=== PATIENT | male | born 1965 | race Caucasian/White ===

== ENCOUNTER 2024-07-02 04:41 | Emergency (ER) | payer OTHER ==
[2024-07-02] MEDS ORDERED: LORAZEPAM 1 MG TABLET ONE (05:32)
--- NOTE | 2024-07-02 05:59 | ER ---
Nurse's Notes [facility] Name: Ruddy Her Age: 59 yrs Sex: Male : 1965 Arrival Date: 07/02/2024 Time: 04:41 Bed 5 Private MD: Diagnosis: Anxiety disorder, unspecified;Insomnia due to medical condition Presentation: 07/02 04:44 Chief complaint: Patient states: ANXIETY, UNABLE TO SLEEP, AND ELEVATED GLUCOSE LEVEL. ha1 04:44 Coronavirus screen: Vaccine status: Patient reports being unvaccinated. Ebola Screen: ha1 No symptoms or risks identified at this time. Initial Sepsis Screen: Does the patient meet any 2 criteria? No. Patient's initial sepsis screen is negative. Does the patient have a suspected source of infection? No. Patient's initial sepsis screen is negative. Risk Assessment: Do you want to hurt yourself or someone else? Patient reports no desire to harm self or others. Onset of symptoms was July 02, 2024. 04:44 Method Of Arrival: Ambulatory ha1 04:44 Acuity: YASMIN 4 ha1 Triage Assessment: 04:44 General: Appears uncomfortable, Behavior is anxious. Pain: Complains of pain in CHRONIC ha1 PAIN BACK Pain currently is 3 out of 10 on a pain scale. Neuro: Level of Consciousness is awake, alert, obeys commands, Oriented to person, place, time, situation. Cardiovascular: Capillary refill < 3 seconds Patient's skin is warm and dry. Respiratory: Airway is patent Respiratory effort is even, unlabored, Respiratory pattern is regular, symmetrical. GI: Abdomen is round non-distended, obese. Derm: Skin is pink, warm \T\ dry. Musculoskeletal: Circulation, motion, and sensation intact. Range of motion: intact in all extremities. Historical: - Allergies: 05:41 Dilaudid; mt4 - Immunization history:: Adult Immunizations up to date. - Social history:: The patient is unemployed, Smoking status: Patient denies any tobacco usage or history of. - Infectious Disease History:: Denies. - Family history:: not pertinent. Screenin:41 [facility] ED Fall Risk Assessment (Adult) History of falling in the last 3 months, mt4 including since admission Yes- single mechanical fall (1 pt) Confusion or Disorientation No (0 pts) Intoxicated or Sedated No (0 pts) Impaired Gait No (0 pts) Mobility Assist Device Used Yes (1 pt) Altered Elimination No (0 pt) Score/Fall Risk Level 3 or more points = High Risk. Abuse screen: Denies injuries from another. Nutritional screening: No deficits noted. Tuberculosis screening: No symptoms or risk factors identified. Exposure risk/Travel Screening: None identified. Assessment: 05:37 Reassessment: Patient is alert/active/playful, equal unlabored respirations, skin mt4 warm/dry/pink. General: Appears comfortable, obese, Behavior is anxious. Pain: Denies pain. Neuro:. Neuro: Level of Consciousness is awake, alert, obeys commands, Oriented to person, place, time, situation, Soaping Machine Back Tender are equal bilaterally Moves all extremities. Gait is steady, Speech is normal, Facial symmetry appears normal. Cardiovascular: Capillary refill < 3 seconds. Respiratory: Airway is patent Respiratory effort is even, unlabored, Respiratory pattern is regular. GI: No signs and/or symptoms were reported involving the gastrointestinal system. GI: No signs and/or symptoms were reported involving the gastrointestinal system. : No signs and/or symptoms were reported regarding the genitourinary system. Musculoskeletal: Range of motion: intact in all extremities. Vital Signs: 05:41 BP 134 / 60; Pulse 57; Resp 20; Temp 98.8(O); Pulse Ox 98% on R/A; Pain 0/10; mt4 06:00 BP 127 / 69; Pulse 60; Resp 20; Temp 98.6; Pulse Ox 97% ; jj7 05:41 Pain Scale: Adult mt4 Fermin Coma Score: 05:30 Eye Response: spontaneous(4). Motor Response: obeys commands(6). Verbal Response: sp4 oriented(5). Total: 15. 05:41 Eye Response: spontaneous(4). Motor Response: obeys commands(6). Verbal Response: mt4 oriented(5). Total: 15. ED Course: 04:44 Patient arrived in ED. jj6 04:45 Dhiraj Jean MD is Attending Physician. sp4 05:36 Sandra Siddiqi, RN is Primary Nurse. mt4 05:41 Patient has correct armband on for positive identification. Fall risk band placed. Bed mt4 in low position. Call light in reach. Side rails up X 1. Provided Education on: medication . Client placed on continuous cardiac and pulse oximetry monitoring. NIBP monitoring applied. Pulse ox on. Door closed. Noise minimized. Lights dimmed. Warm blanket given. Diet tray ordered. Verbal reassurance given. Assisted with urinal. 05:41 No provider procedures requiring assistance completed. Patient did not have IV access mt4 during this emergency room visit. 05:47 Triage completed. ha1 Administered Medications: 05:36 Drug: LORazepam PO 1 mg PO once Route: PO; mt4 06:03 Follow up: Response: No adverse reaction jj7 Medication: 05:41 VIS not applicable for this client. mt4 Outcome: 05:58 Discharge ordered by . vicky 06:00 Discharged to home ambulatory, rito 06:00 Condition: good 06:00 Discharge instructions given to patient, Instructed on discharge instructions, follow up and referral plans. medication usage, Demonstrated understanding of instructions, follow-up care, medications, Prescriptions given X 1, 06:23 Patient left the ED. jj7 Signatures: Madalyn Fried jj6 Reina Morgan RN RN ha1 Navid Wan RN RN jj7 Dhiraj Jean MD MD sp4 Sandra Siddiqi RN RN mt4 Corrections: (The following items were deleted from the chart) 05:42 05:41 Home Meds: pain pump; mt4 mt4
--- NOTE | 2024-07-02 05:59 | EDPHYS ---
Physician Documentation [facility] Name: Ruddy Her Age: 59 yrs Sex: Male : 1965 Arrival Date: 07/02/2024 Time: 04:41 Bed 5 Private MD: ED Physician Dhiraj Jean HPI: 07/02 04:45 This 59 yrs old Male presents to ER via Unassigned with complaints of Anxiety.sp4 05:29 PMH - Allergies: Dilaudid PMHx: Borderline Diabetes; Hypertensive disorder; sp4 Hypothyroidism; Polycythemia Vera; Diabetes mellitus; Chronic back pain; PSHx: Fused Lumbar; . 05:30 59-year-old male presents to the emergency room with complaint of insomnia and anxiety. sp4 Patient states he ran out of his lorazepam day before yesterday. Patient takes 1 mg lorazepam as needed for anxiety. Patient requests medicine for anxiety. Also request blood sugar checked. Historical: - Allergies: 05:41 Dilaudid; mt4 - Immunization history:: Adult Immunizations up to date. - Social history:: The patient is unemployed, Smoking status: Patient denies any tobacco usage or history of. - Infectious Disease History:: Denies. - Family history:: not pertinent. ROS: 05:30 Constitutional: Negative for fever, chills, and weight loss, positive for anxiety, sp4 positive for insomnia 05:30 All other systems are negative, Exam: 05:30 Constitutional: This is a well developed, well nourished patient who is awake, alert, sp4 and in no acute distress. Ambulatory with a cane Head/Face: Normocephalic, atraumatic. Eyes: Pupils equal round and reactive to light, extra-ocular motions intact. Lids and lashes normal. Conjunctiva and sclera are not injected. Cornea within normal limits. Periorbital areas with no swelling, redness, or edema. ENT: Nares patent. No nasal discharge, no septal abnormalities noted. Tympanic membranes are normal and external auditory canals are clear. Oropharynx with no redness, swelling, or masses, exudates, or evidence of obstruction, uvula midline. Mucous membranes moist. Neck: Trachea midline, no thyromegaly or masses palpated, and no cervical lymphadenopathy. Supple, full range of motion without nuchal rigidity, or vertebral point tenderness. Chest/axilla: Normal chest wall appearance and motion. Nontender with no deformity. No lesions are appreciated. Cardiovascular: Regular rate and rhythm with a normal S1 and S2. No gallops, murmurs, or rubs. Normal PMI, no JVD. No pulse deficits. Respiratory: Lungs have equal breath sounds bilaterally, clear to auscultation and percussion. No rales, rhonchi or wheezes noted. No increased work of breathing, no retractions or nasal flaring. Abdomen/GI: Soft, with normal bowel sounds. No distension or tympany. No guarding or rebound. No evidence of tenderness throughout. Back: No spinal tenderness. No costovertebral tenderness. Skin: Warm, dry with normal turgor. Normal color with no rashes, no lesions, and no evidence of cellulitis. MS/ Extremity: Pulses equal, no cyanosis. Neurovascular intact. Full, normal range of motion. Neuro: Awake and alert, GCS 15, oriented to person, place, time, and situation. Cranial nerves II-XII grossly intact. Motor strength 5/5 in all extremities. Sensory grossly intact. Psych: Awake, alert, with orientation to person, place and time. Behavior, mood, and affect are within normal limits Vital Signs: 05:41 BP 134 / 60; Pulse 57; Resp 20; Temp 98.8(O); Pulse Ox 98% on R/A; Pain 0/10; mt4 06:00 BP 127 / 69; Pulse 60; Resp 20; Temp 98.6; Pulse Ox 97% ; jj7 05:41 Pain Scale: Adult mt4 Fermin Coma Score: 05:30 Eye Response: spontaneous(4). Motor Response: obeys commands(6). Verbal Response: sp4 oriented(5). Total: 15. 05:41 Eye Response: spontaneous(4). Motor Response: obeys commands(6). Verbal Response: mt4 oriented(5). Total: 15. MDM: 04:58 Patient medically screened. sp4 06:00 Differential diagnosis: drug withdrawal. depression, psychosis secondary to sp4 non-compliance, anxiety and insomnia. Data reviewed: vital signs, nurses notes, lab test result(s), finger stick glucose. ED course: Blood sugar 283 , stable for discharge home . 06:01 ED course: Will provide as needed Ativan prescription 10 tablets total. Advised sp4 follow-up with pain management physician. . 07/02 05:41 Order name: Glucose, Ancillary Testing; Complete Time: 06:05 EDMS 07/02 04:58 Order name: Accucheck Blood Glucose; Complete Time: 06:03 sp4 Administered Medications: 05:36 Drug: LORazepam PO 1 mg PO once Route: PO; mt4 06:03 Follow up: Response: No adverse reaction jj7 Disposition Summary: 07/02/24 05:58 Discharge Ordered Notes: Location: Home sp4 Problem: new sp4 Symptoms: have improved sp4 Condition: Stable sp4 Diagnosis - Anxiety disorder, unspecified sp4 - Insomnia due to medical condition sp4 Followup: sp4 - With: Private Physician - When: 7 - 10 days - Reason: Recheck today's complaints Discharge Instructions: - Discharge Summary Sheet sp4 - Managing Anxiety, Adult sp4 Forms: - Patient Portal Instructions sp4 Prescriptions: - Ativan 1 mg Oral tablet - take 1 tablet ORAL route once daily As needed PRN anxiety; 10 tablet; Refills: sp4 0, Product Selection Permitted Signatures: Dhiraj Jean MD MD sp4 Sandra Siddiqi RN RN mt4 Navid Wan RN jj7 Corrections: (The following items were deleted from the chart) 05:42 05:41 Home Meds: pain pump; mt4 mt4
[2024-07-02 06:30] VITALS: BP 127/69; TEMP 98.6; O2SAT 97
== END 2024-07-02 06:23 | disposition home or self-care (01) ==
LOC: ER 04:41
DX: F41.9 Anxiety disorder, unspecified (principal); G47.01 Insomnia due to medical condition
CPT/HCPCS: 82947; 99284

== ENCOUNTER 2024-07-04 14:39 | Emergency (ER) | payer OTHER ==
[2024-07-04 15:59] LABS: Absolute Eosinophils 0.1 K/uL (0-0.5); Absolute Lymphocytes (CBC) 1.4 K/uL (0.7-4.9); Absolute Monocytes 0.4 K/uL (0.1-1.3); Basophils % 0.6 % (0-1.3); Eosinophils % 3.7 % (0-4.4); Hematocrit 39.1 % (39.6-49.0); Hemoglobin 13.2 g/dL (13.6-17.9); Lymphocytes % 35.8 % (15.3-44.8); MCH 30.1 pg (27.0-35.0); MCHC 33.8 g/dL (32.0-36.0); MCV 88.9 fL (80-100); MPV 7.3 fL (7.6-11.3); Monocytes % 9.4 % (3.3-12.3); Neutrophils % 50.5 % (41.7-73.7); Platelets 99 thou/uL (152-406); Red Cell Distribution Width 14.6 % (12.1-15.2)
[2024-07-04 16:16] LABS: Albumin 3.6 g/dL (3.4-5.0); Anion Gap 9.6 mEq/L (5.0-15.0); Bilirubin Total 0.4 mg/dL (0.2-1.0); Globulin 3.6 g/dL (2.3-3.5); Potassium 3.6 mEq/L (3.5-5.1); Protein, Total 7.2 g/dL (6.4-8.2)
--- NOTE | 2024-07-04 16:21 | RAD REPORT ---
EXAMINATION: CT ABDOMEN AND PELVIS WITHOUT CONTRAST CLINICAL INDICATION: Abdominal pain TECHNIQUE: CT abdomen and pelvis was performed, as per department protocol. IV contrast and oral was not administered.Axial, sagittal and coronal reconstructions were obtained. One or more of the following dose reduction techniques were used: Automated exposure control, adjustment of the mA and/o r kV according to the patient size, and/or iterative reconstruction. Unless otherwise specified, incidental findings do not require dedicated imaging follow-up. [id number]. COMPARISON: 2022 FINDINGS: The lack of intravenous and contrast limits the sensitivity of this exam for evaluation of solid visc eral organs, vascular structures, and bowel. Hepatomegaly with fatty infiltration. Cirrhotic liver. Spleen centimeters. The pancreas, adrenals and kidneys grossly normal Post surgical changes involve the lumbar spine. Ostial lysis involving 2 vertebral again demonstrated . Marked spondylosis L2-3 Pain pump present. No evidence of diverticulitis IMPRESSION: Hepatomegaly with fatty infiltration.. Cirrhosis with splenomegaly 8 mm low-density lesion within the liver is nonspecific. Nonemergent MRI may be helpful for further e valuation.
--- NOTE | 2024-07-04 16:49 | EDPHYS ---
Physician Documentation [facility] Name: Ruddy Her Age: 59 yrs Sex: Male : 1965 Arrival Date: 07/04/2024 Time: 14:39 Bed 19 Private MD: ED Physician Phillip Naranjo HPI: 07/04 15:44 This 59 yrs old Male presents to ER via Ambulatory with complaints of ec2 Abdominal Pain. 15:44 Patient arrives today for evaluation of left-sided abdominal pain. Ongoing for 2 days. ec2 No nausea. No trauma. Reports that he recently had his hepatitis vaccines and was concerned this was causing a reaction. No urinary complaints.. Historical: - Allergies: 14:45 Dilaudid; ll1 - PMHx: 14:45 Borderline Diabetes; chronic back pain; diabetes mellitus; Hypertensive disorder; ll1 Hypothyroidism; polycythemia vera; - PSHx: 14:45 Fused Lumbar; ll1 - Immunization history:: Adult Immunizations up to date. - Infectious Disease History:: Denies. - Social history:: Smoking status: Reported history of juuling and/or vaping. ROS: 15:44 Constitutional: as per hpi ec2 Exam: 15:44 Constitutional: GEN: NAD Head: atraumatic Eyes: EOMI Ears: External ears are ec2 normal. CV: regular rate LUNGS: no respiratory distress ABD: Slightly distended abdomen who is generally tender SKIN: no evidence of rashes MSK: no evidence of trauma Vital Signs: 14:45 BP 150 / 93; Pulse 71; Resp 18; Temp 98; Pulse Ox 98% ; Weight 122.47 kg; Height 6 ft. ll1 4 in. ; Pain 6/10; 16:00 BP 146 / 79; Pulse 62; Resp 17; Pulse Ox 97% ; me1 16:56 BP 143 / 87; Pulse 61; Resp 16; Temp 98.1; Pulse Ox 95% ; me1 14:45 Body Mass Index 32.87 (122.47 kg, 193.04 cm) ll1 14:45 Pain Scale: Adult ll1 MDM: 15:44 Data reviewed: vital signs. ED course: Patient arrives today for evaluation of ec2 abdominal pain. Examination remarkable for abdominal findings as above. Will obtain lab work and CT imaging. Differential includes constipation, pancreatitis, small bowel obstruction. 16:49 ED course: CBC, metabolic profile and lipase are nonactionable, CT imaging shows ec2 cirrhosis along with splenomegaly, patient can follow-up outpatient for his liver disease. Will discharge home. Return precautions given. . 16:49 Patient medically screened. ec2 07/04 15:40 Order name: CBC with Diff ec2 07/04 15:40 Order name: CMP; Complete Time: 16:48 ec2 07/04 15:40 Order name: Lipase; Complete Time: 16:48 ec2 07/04 15:40 Order name: CT Abd/Pelvis - Without Contrast; Complete Time: 16:48 ec2 07/04 15:40 Order name: IV Saline Lock; Complete Time: 15:55 ec2 07/04 15:40 Order name: Labs collected and sent; Complete Time: 15:55 ec2 Administered Medications: 17:03 Drug: hydrOXYzine PO 50 mg PO once Route: PO; me1 17:04 Follow up: Response: No adverse reaction me1 Disposition Summary: 07/04/24 16:49 Discharge Ordered Notes: Location: Home ec2 Condition: Stable ec2 Diagnosis - Abdominal distension (gaseous) ec2 Followup: ec2 - With: Private Physician - When: - Reason: Re-evaluation by your physician Discharge Instructions: - Discharge Summary Sheet ec2 - Abdominal Pain, Adult ec2 Forms: - Medication Reconciliation Form ec2 - Antibiotic Education ec2 - Prescription Opioid Use ec2 - Patient Portal Instructions ec2 - Leadership Thank You Letter ec2 Signatures: Dispatcher [employer] Vinny Mariano RN RN 1 Trinh Green RN RN me1 Phillip Naranjo MD MD ec2 Corrections: (The following items were deleted from the chart) 15:41 15:41 Abdomen Pelvis Wo Con+CT.RAD.BRZ ordered. EDMS EDMS
--- NOTE | 2024-07-04 16:49 | ER ---
Nurse's Notes [facility] Name: Ruddy Her Age: 59 yrs Sex: Male : 1965 Arrival Date: 07/04/2024 Time: 14:39 Bed 19 Private MD: Diagnosis: Abdominal distension (gaseous) Presentation: 07/04 14:45 Chief complaint: Patient states: Abdominal pain continues since his visit last night. ll1 Gout flare up B hand, and B 1st toe digits. Coronavirus screen: Client denies travel out of the [place] in the last 14 days. At this time, the client does not indicate any symptoms associated with coronavirus-19. Ebola Screen: Patient denies travel to an Ebola-affected area in the 21 days before illness onset. Initial Sepsis Screen: Does the patient meet any 2 criteria? No. Patient's initial sepsis screen is negative. Does the patient have a suspected source of infection? No. Patient's initial sepsis screen is negative. Risk Assessment: Do you want to hurt yourself or someone else? Patient reports no desire to harm self or others. Onset of symptoms was July 01, 2024. 14:45 Method Of Arrival: Ambulatory ll1 14:45 Acuity: YASMIN 3 ll1 Triage Assessment: 14:45 General: Appears uncomfortable, Behavior is calm, cooperative, appropriate for age. ll1 Pain: Complains of pain in abdomen. GI: Reports upper abdominal pain, bloating. Musculoskeletal: Reports pain in right hand, left hand, right foot and left foot. Historical: - Allergies: 14:45 Dilaudid; ll1 - PMHx: 14:45 Borderline Diabetes; chronic back pain; diabetes mellitus; Hypertensive disorder; ll1 Hypothyroidism; polycythemia vera; - PSHx: 14:45 Fused Lumbar; ll1 - Immunization history:: Adult Immunizations up to date. - Infectious Disease History:: Denies. - Social history:: Smoking status: Reported history of juuling and/or vaping. Screenin:00 [facility] ED Fall Risk Assessment (Adult) History of falling in the last 3 months, me1 including since admission No falls in past 3 months (0 pts) Confusion or Disorientation No (0 pts) Intoxicated or Sedated No (0 pts) Impaired Gait Yes (1 pt) Mobility Assist Device Used Yes (1 pt) Altered Elimination No (0 pt) Score/Fall Risk Level 0 - 2 = Low Risk Maintained a safe environment, Provided non-skid footwear, Hourly rounding (assess needs \T\ fall precautionary measures) done. Abuse screen: Denies threats or abuse. Nutritional screening: No deficits noted. Tuberculosis screening: No symptoms or risk factors identified. Assessment: 15:00 General: Appears uncomfortable, well groomed, well developed, well nourished, Behavior me1 is calm, cooperative, appropriate for age, Reports Abdominal pain continues since his visit last night. Gout flare up B hand, and B 1st toe digits. Pain: Complains of pain in left foot and right foot and left hand and right hand and abdomen Pain does not radiate. Pain currently is 6 out of 10 on a pain scale. Quality of pain is described as aching, Pain began 1 day ago. Is continuous. Neuro: Level of Consciousness is awake, alert, obeys commands, Oriented to person, place, time, situation, Appropriate for age. Cardiovascular: Patient's skin is warm and dry. Respiratory: Airway is patent Respiratory effort is even, unlabored, Respiratory pattern is regular, symmetrical. GI: Bowel sounds present X 4 quads. Abd is soft X 4 quads Reports upper abdominal pain. : No signs and/or symptoms were reported regarding the genitourinary system. EENT: No signs and/or symptoms were reported regarding the EENT system. Derm: Skin is intact, is healthy with good turgor, Skin is pink, warm \T\ dry. Musculoskeletal: Reports pain in left foot and right foot and left hand and right hand. Vital Signs: 14:45 BP 150 / 93; Pulse 71; Resp 18; Temp 98; Pulse Ox 98% ; Weight 122.47 kg; Height 6 ft. ll1 4 in. ; Pain 6/10; 16:00 BP 146 / 79; Pulse 62; Resp 17; Pulse Ox 97% ; me1 16:56 BP 143 / 87; Pulse 61; Resp 16; Temp 98.1; Pulse Ox 95% ; me1 14:45 Body Mass Index 32.87 (122.47 kg, 193.04 cm) ll1 14:45 Pain Scale: Adult ll1 ED Course: 14:41 Patient arrived in ED. mg5 14:43 Phillip Naranjo MD is Attending Physician. ec2 14:45 Arm band placed on. ll1 14:47 Triage completed. ll1 15:00 Patient has correct armband on for positive identification. Bed in low position. Call [facility] light in reach. Side rails up X 1. Provided Education on: POC. Verbalized understanding. . Client placed on continuous cardiac and pulse oximetry monitoring. NIBP monitoring applied. Pulse ox on. NIBP on. 15:00 No provider procedures requiring assistance completed. hi1 15:01 Trinh Green, RN is Primary Nurse. hi1 15:55 CBC with Diff Sent. me1 15:55 CMP Sent. hi1 15:55 Lipase Sent. hi1 15:55 Initial lab(s) drawn, by hi, sent to lab. Inserted saline lock: 22 gauge in right hi1 antecubital area, using aseptic technique. 16:10 CT Abd/Pelvis - Without Contrast In Process Unspecified. EDMS 17:04 IV discontinued, intact, bleeding controlled, No redness/swelling at site. Pressure hi1 dressing applied. Administered Medications: 17:03 Drug: hydrOXYzine PO 50 mg PO once Route: PO; hi1 17:04 Follow up: Response: No adverse reaction hi1 Medication: 15:00 VIS not applicable for this client. [facility] Outcome: 16:49 Discharge ordered by . ec2 17:04 Discharged to home ambulatory, hi1 17:04 Condition: stable 17:04 Discharge instructions given to patient, Instructed on discharge instructions, follow up and referral plans. Demonstrated understanding of instructions, follow-up care, 17:04 Patient left the ED. [facility] Signatures: Dispatcher [employer] Vinny Mariano RN RN 1 Trinh Green RN RN [facility] Kely Badillo mg5 Phillip Naranjo MD MD ec2 Corrections: (The following items were deleted from the chart) 16:51 14:45 Chief complaint: Patient states: Abdominal pain continues since his visit last hi1 night. Gout flare up B hand, and B 1st toe digits. 1
[2024-07-04] MEDS ORDERED: hydrOXYzine HCL 25 MG TAB ONE (16:59)
[2024-07-04 17:20] LABS: Blood Morphology Comment NOT SEEN (NOT SEEN); Platelet Estimate DECR; White Blood Cell Scan OK (OK)
[2024-07-04 19:30] VITALS: BP 143/87; TEMP 98.1; O2SAT 95
== END 2024-07-04 17:04 | disposition home or self-care (01) ==
LOC: ER 14:39
DX: R14.0 Abdominal distension (gaseous) (principal); R10.32 Left lower quadrant pain
CPT/HCPCS: 36415; 74176; 80053; 83690; 85025

== ENCOUNTER 2024-07-06 06:54 | Emergency (ER) | payer OTHER ==
[2024-07-06] MEDS ORDERED: GABAPENTIN 300 MG CAP ONE (07:55)
[2024-07-06] MEDS ORDERED: CYCLOBENZAPRINE 10 MG TAB ONE (07:55)
[2024-07-06] MEDS ORDERED: LORAZEPAM 1 MG TABLET ONE (07:56)
[2024-07-06 08:21] LABS: Absolute Eosinophils 0.2 K/uL (0-0.5); Absolute Lymphocytes (CBC) 1.5 K/uL (0.7-4.9); Absolute Monocytes 0.5 K/uL (0.1-1.3); Absolute Neutrophil 3.2 K/uL (1.8-8.0); Basophils % 0.7 % (0-1.3); Eosinophils % 4.5 % (0-4.4); Hematocrit 42.4 % (39.6-49.0); Hemoglobin 14.4 g/dL (13.6-17.9); Lymphocytes % 27.8 % (15.3-44.8); MCH 29.8 pg (27.0-35.0); MCV 87.8 fL (80-100); MPV 7.1 fL (7.6-11.3); Monocytes % 8.7 % (3.3-12.3); Neutrophils % 58.3 % (41.7-73.7); Nucleated Red Blood Cells % 0.1 % (0-0); Platelets 118 thou/uL (152-406); RBC Red Blood Cell Count 4.83 M/uL (4.33-5.43)
[2024-07-06 08:42] LABS: Albumin 3.8 g/dL (3.4-5.0); Albumin/Globulin Ratio 0.9 (1.1-1.8); Anion Gap 9.6 mEq/L (5.0-15.0); Bilirubin Total 0.7 mg/dL (0.2-1.0); Globulin 4.1 g/dL (2.3-3.5); Potassium 3.6 mEq/L (3.5-5.1); Protein, Total 7.9 g/dL (6.4-8.2)
--- NOTE | 2024-07-06 09:20 | RAD REPORT ---
EXAMINATION: Neck Angio CLINICAL INDICATION: Neck pain TECHNIQUE: Axial CT images were obtained from the aortic arch to the skull base after intravenous adm inistration of 100 cc Isovue-370 utilizing angiographic protocol. Multiplanar reformats, as well as 3D post-processing (maximum intensity projection images, volume rendered images and/or shaded surface rendered images) were generated and reviewed. One or more of the following dose reduction techniques were used: Automated exposure control, adjustment of the mA and/or kV according to patient size, and/or iterative reconstruction. Unless otherwise specified, incidental findings do not require dedicated imaging follow-up. COMPARISON: No prior exam. FINDINGS: The visualized aortic arch and great vessels do not demonstrate a significant abnormality Common carotid, internal carotid and external carotid arteries bilaterally demonstrate mild plaque. Vertebral arteries unremarkable. No significant stenosis noted. A dissection is not seen. Post surgical changes involve the cervical spine. Methods for NASCET criteria: Mild stenosis, 0% to 49%; Moderate stenosis 50% to 69%; Severe stenosis, 70% to 99% IMPRESSION: No acute vascular abnormality displayed
--- NOTE | 2024-07-06 09:27 | RAD REPORT ---
EXAM: CT face with contrast HISTORY: Facial pain COMPARISON: None TECHNIQUE: Multiple contiguous axial images were obtained and a CT of the face with 100 cc Isovue 300 contrast. Sagittal and coronal reformats were performed. Automated exposure control, adjustment of the mA and/or kV according to patient size, and/or iterative reconstruction. Unless otherwise specif ied, incidental findings do not require dedicated imaging follow-up. FINDINGS: The visualized airway is unremarkable. Parotid, submandibular and visualized thyroid gland unremarkable. Parapharyngeal fat is clear No significant lymphadenopathy seen. Mucous retention cyst within the right maxillary sinus. No fluid within the sinuses or mastoids. IMPRESSION: No significant abnormalities displayed
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
[2024-07-06 12:48] VITALS: TEMP 96.9; O2SAT 94
[2024-07-06 12:49] VITALS: BP 111/64
== END 2024-07-06 11:08 | disposition home or self-care (01) ==
LOC: ER 06:54
DX: M54.12 Radiculopathy, cervical region (principal); M79.641 Pain in right hand; E11.9 Type 2 diabetes mellitus without complications; I10 Essential (primary) hypertension
CPT/HCPCS: 85025; 36415; 83690; 80053; 70487; 76377; 70498; Q9967; 99284

== ENCOUNTER 2024-07-06 22:36 | Emergency (ER) | payer OTHER ==
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
--- NOTE | 2024-07-06 23:38 | EDPHYS ---
Physician Documentation [facility] Name: Ruddy Her Age: 59 yrs Sex: Male : 1965 Arrival Date: 07/06/2024 Time: 22:36 Bed 8 Private MD: ED Physician Dhiraj Jean HPI: 07/06 23:00 This 59 yrs old Male presents to ER via Unassigned with complaints of Neck sp4 and Upper Back Pain. 23:06 CT review from today earlier visti - IMPRESSION: No acute vascular abnormality sp4 displayed . CT - HISTORY: Facial pain COMPARISON: None TECHNIQUE: Multiple contiguous axial images were obtained and a CT of the face with 100 cc Isovue 300 contrast. Sagittal and coronal reformats were performed. Automated exposure control, adjustment of the mA and/or kV according to patient size, and/or iterative reconstruction. Unless otherwise specified, incidental findings do not require dedicated imaging follow-up. FINDINGS: The visualized airway is unremarkable. Parotid, submandibular and visualized thyroid gland unremarkable. Parapharyngeal fat is clear No significant lymphadenopathy seen. Mucous retention cyst within the right maxillary sinus. No fluid within the sinuses or mastoids. IMPRESSION: No significant abnormalities displayed. CT abdomen / pelvis from 07/04/2024 - EXAMINATION: CT ABDOMEN AND PELVIS WITHOUT CONTRAST CLINICAL INDICATION: Abdominal pain TECHNIQUE: CT abdomen and pelvis was performed, as per department protocol. IV contrast and oral was not administered.Axial, sagittal and coronal reconstructions were obtained. One or more of the following dose reduction techniques were used: Automated exposure control, adjustment of the mA and/or kV according to the patient size, and/or iterative reconstruction. Unless otherwise specified, incidental findings do not require dedicated imaging follow-up. [id number]. COMPARISON: 2022 FINDINGS: The lack of intravenous and contrast limits the sensitivity of this exam for evaluation of solid visceral organs, vascular structures, and bowel. Hepatomegaly with fatty infiltration. Cirrhotic liver. Spleen centimeters. The pancreas, adrenals and kidneys grossly normal Post surgical changes involve the lumbar spine. Ostial lysis involving 2 vertebral again demonstrated. Marked spondylosis L2-3 Pain pump present. No evidence of diverticulitis IMPRESSION: Hepatomegaly with fatty infiltration.. Cirrhosis with splenomegaly 8 mm low-density lesion within the liver is nonspecific. Nonemergent MRI may be helpful for further evaluation. Reported By: Albert Bo. 23:10 from 06/03/2024 - CLINICAL INDICATION: Male, 59 years, K74.60 TECHNIQUE: Grayscale sp4 ultrasonography of the abdomen was performed. [id number]. COMPARISON: CT 01/04/2023 FINDINGS: LIVER: Increased echogenicity with reduced sonographic penetration and without focal mass. The liver is enlarged. GALLBLADDER: No gallstones, gall bladder wall thickening or pericholecystic fluid. No reported sonographic Gill's sign. BILE DUCTS: Extra hepatic biliary ductal dilatation with common bile duct measuring 0.7 cm RIGHT KIDNEY: Right renal length measurement: 12.4 cm. Normal in echogenicity and size. No calculus, solid mass or hydronephrosis. LEFT KIDNEY: Left renal length measurement: 14 cm. Normal in echogenicity and size. No calculus, solid mass or hydronephrosis. SPLEEN: The spleen is enlarged measuring 18.8 cm PANCREAS: Partially obscured. AORTA AND INFERIOR VENA CAVA: Visualized segments of the aorta and inferior vena cava are normal. ASCITES: None. ADDITIONAL FINDINGS: None. IMPRESSION: 1.Hepatomegaly with steatosis. 2. Splenomegaly. 3. Mild extrahepatic biliary ductal dilatation with common bile duct measuring 7 mm. Correlate with LFTs. If abnormal, could consider MRCP for further evaluation. . 23:23 59-year-old male presents with worsening neck and left arm pain. Patient states he is sp4 currently on pain management by Dr. Jake Lehman, who is managing him with Oxycodone 20 mg PO Q 6 hours , and morphine sulfate extended release 10 mg every 12 hours, Also patient takes lorazepam 1 mg as reported as needed as reported every 6 hours, has pain from that contains baclofen, morphine, and local anesthetic likely bupivacaine. Patient was here this morning and had comprehensive workup breathing CT neck with angiography to assess for vascular anomalies and we discovered that patient has orthopedic hardware C6-T1 in the neck that is not displaced. Patient additionally has Ortho hardware L1-L5 visualized on the recent CT abdomen and pelvis. Patient states that he is having worsening neck pain associated with pain down the left arm. Is requesting Ativan on presentation. . Historical: - Allergies: 23:09 Dilaudid; al5 - Home Meds: 23:09 oxycodone 20 mg Oral tablet every 6 hours [Active]; OxyContin 10 mg Oral tablet once al5 [Active]; pain pump [Active]; - PMHx: 23:09 chronic back pain; diabetes mellitus; Hypertensive disorder; Hypothyroidism; al5 polycythemia vera; - PSHx: 23:09 Fused Lumbar; al5 - Immunization history:: Adult Immunizations up to date. - Infectious Disease History:: Denies. - Family history:: not pertinent. - Social history:: Smoking status: unknown. ROS: 23:23 Constitutional: Negative for fever, chills, and weight loss, positive for neck pain sp4 with pain radiating down the left arm. 23:23 All other systems are negative, Exam: 23:23 Constitutional: This is a well developed, well nourished patient who is awake, alert, sp4 and in no acute distress. Ambulatory with a cane. Head/Face: Normocephalic, atraumatic. Eyes: Pupils equal round and reactive to light, extra-ocular motions intact. Lids and lashes normal. Conjunctiva and sclera are not injected. Cornea within normal limits. Periorbital areas with no swelling, redness, or edema. ENT: Nares patent. No nasal discharge, no septal abnormalities noted. Tympanic membranes are normal and external auditory canals are clear. Oropharynx with no redness, swelling, or masses, exudates, or evidence of obstruction, uvula midline. Mucous membranes moist. Neck: Trachea midline, no thyromegaly or masses palpated, and no cervical lymphadenopathy. Supple, full range of motion without nuchal rigidity, or vertebral point tenderness. Chest/axilla: Normal chest wall appearance and motion. Nontender with no deformity. No lesions are appreciated. Cardiovascular: Regular rate and rhythm with a normal S1 and S2. No gallops, murmurs, or rubs. Normal PMI, no JVD. No pulse deficits. Respiratory: Lungs have equal breath sounds bilaterally, clear to auscultation and percussion. No rales, rhonchi or wheezes noted. No increased work of breathing, no retractions or nasal flaring. Abdomen/GI: Soft, with normal bowel sounds. No distension or tympany. No guarding or rebound. No evidence of tenderness throughout. Back: No spinal tenderness. No costovertebral tenderness. Skin: Warm, dry with normal turgor. Normal color with no rashes, no lesions, and no evidence of cellulitis. MS/ Extremity: Pulses equal, no cyanosis. Neurovascular intact. Full, normal range of motion. Neuro: Awake and alert, GCS 15, oriented to person, place, time, and situation. Cranial nerves II-XII grossly intact. Motor strength 5/5 in all extremities. Sensory grossly intact. Psych: Awake, alert, with orientation to person, place and time. Behavior, mood, and affect are within normal limits Vital Signs: 23:10 BP 150 / 88; Pulse 90; Resp 18; Temp 97.7; Pulse Ox 98% on R/A; Weight 119.29 kg; al5 Height 6 ft. 4 in. ; Pain 10/10; 23:10 Body Mass Index 32.01 (119.29 kg, 193.04 cm) al5 23:10 Pain Scale: Adult al5 [place] Coma Score: 23:23 Eye Response: spontaneous(4). Motor Response: obeys commands(6). Verbal Response: sp4 oriented(5). Total: 15. MDM: 23:09 Medical Screening Exam initiated sp4 23:33 Differential diagnosis: arthritis, cervical strain, Degenerative Disc Disease fracture, sp4 Thoracic Outlet Syndrome torticollis. Data reviewed: vital signs, nurses notes, old medical records. Consideration of Admission/Observation Escalation of care including admission/observation considered. ED course: Patient was informed that based on his pain management profile and multiple medications in his regimen including oxycodone, morphine sulfate, and also morphine pain pump with baclofen not able to provide him with additional medication. Patient was informed that the risk for overdose secondary to his multimodal pain control is very high. He was advised to see his pain management doctor for further management and adjustment of his pain medication regimen. . Administered Medications: No medications were administered Disposition Summary: 07/06/24 23:37 Discharge Ordered Notes: Location: Home sp4 Problem: new sp4 Symptoms: have improved sp4 Condition: Stable sp4 Diagnosis - Exacerbation of chronic pain, chronic neck and back pain. sp4 Followup: sp4 - With: Private Physician - When: 7 - 10 days - Reason: Recheck today's complaints Discharge Instructions: - Discharge Summary Sheet sp4 - Chronic Back Pain, [id number] sp4 Forms: - Patient Portal Instructions sp4 Signatures: Dhiraj Jean MD MD sp4 Debbie Sam, RN RN al5
[2024-07-07 07:08] VITALS: BP 150/88; TEMP 97.7; O2SAT 98
== END 2024-07-06 23:45 | disposition home or self-care (01) ==
LOC: ER 22:36
DX: M54.2 Cervicalgia (principal); M54.9 Dorsalgia, unspecified; E11.9 Type 2 diabetes mellitus without complications; I10 Essential (primary) hypertension; Z96.89 Presence of other specified functional implants
CPT/HCPCS: 99282